=== PATIENT | male | born 1935 | race Caucasian/White ===

== ENCOUNTER 2020-10-12 09:20 | Inpatient (IN) ==
[2020-10-12] MEDS ORDERED: ONDANSETRON 4 MG/2 ML VIAL IV PRN (12:33)
[2020-10-12] MEDS ORDERED: SODIUM CHLORIDE 0.9% 1,000 ML IV PRN ×2 (12:33→14:40)
[2020-10-12] MEDS ORDERED: NITROGLYCERIN SL 0.4 MG TABLET SL PRN (12:38)
[2020-10-12] MEDS: CARBIDOPA/LEVODOPA 25-100 MG TABLET PO SCH ×3 (14:45→21:35)
[2020-10-12 14:49] LABS: Hematocrit 18.9 VOL% (42.0-52.0)
[2020-10-12] MEDS: SODIUM CHLORIDE 0.9% 1,000 ML IV SCH (14:50)
[2020-10-12 14:59] LABS: Alanine Aminotransferase < 9 U/L (16-61); Albumin 2.9 G/DL (3.4-5.0); Alkaline Phosphatase 74 U/L (45-117); Aspartate Amino Transferase 16 U/L (0-37); Bilirubin,Total < 0.39 MG/DL (0.2-1.0); Blood Urea Nitrogen 17 MG/DL (7-18); Calcium 8.3 MG/DL (8.5-10.1); Carbon Dioxide 28 MMOL/L (21-32); Estimated Glom Filtration Rate 65 ML/MIN; Glucose 154 MG/DL (74-106); Osmolality,Calculated 283.4 MOS/KG (273-304); Potassium 2.7 MMOL/L (3.5-5.1); Sodium 140 MMOL/L (136-145)
[2020-10-12 15:06] LABS: Hemoglobin 5.7 GM/DL (14.0-18.0)
[2020-10-12] MEDS: MEMANTINE 10 MG TABLET PO SCH (16:43)
[2020-10-12] MEDS: carvediloL 3.125 MG TABLET PO SCH (16:43)
[2020-10-12] MEDS: DOCUSATE SODIUM 100 MG CAPSULE PO SCH (21:34)
[2020-10-12] MEDS: MELATONIN 3 MG TABLET PO SCH (21:35)
[2020-10-12] MEDS: ROSUVASTATIN 10 MG TABLET PO SCH (21:35)
[2020-10-12] MEDS: RIVASTIGMINE 3 MG CAPSULE PO SCH (21:35)
[2020-10-12] MEDS: PREGABALIN 100 MG CAPSULE PO SCH (21:35)
[2020-10-13 04:59] LABS: Basophils % 0.4 % (0.0-0.8); Eosinophils # 0.2 10*3/uL (0.0-0.87); Eosinophils % 2.2 % (0.00-10.9); Hematocrit 25.3 VOL% (42.0-52.0); Immature Granulocytes Absolute 0.07 #; Lymphocytes # 1.2 10*3/uL (1.4-4.0); Lymphocytes % 16.8 % (21.2-54.2); Mean Corpuscular HGB Conc 33.6 GM/DL (32-36); Mean Corpuscular Volume 82.7 FL (87-102); Mean Platelet Volume 9.9 FL (9.6-12.0); Monocytes % 6.2 % (1.7-12.7); NRBC # 0.03 10*3/uL; Neutrophils % 73.4 % (38.7-73.9); Platelet Count 223 T/CUMM (130-400); Red Blood Count 3.06 MC/CUMM (3.8-5.5); Red Cell Distribution Width 13.9 % (9.3-17.3)
[2020-10-13 05:00] LABS: Hemoglobin 8.5 GM/DL (14.0-18.0)
[2020-10-13] MEDS ORDERED: POTASSIUM CHLORIDE RIDER 10 MEQ in PREMIX 1 EACH IV PRN (07:07)
[2020-10-13] MEDS: SODIUM CHLORIDE 0.9% 1,000 ML IV SCH ×2 (08:29→18:50)
[2020-10-13] MEDS ORDERED: cefTRIAXone 1,000 MG in SODIUM CHLORIDE 0.9% 100 ML IV ONE (10:00)
[2020-10-13] MEDS ORDERED: fentaNYL 100 MCG/2 ML VIAL ONE (10:29)
[2020-10-13] MEDS: carvediloL 3.125 MG TABLET PO SCH ×2 (10:31→16:55)
[2020-10-13] MEDS: DOCUSATE SODIUM 100 MG CAPSULE PO SCH ×2 (10:31→21:37)
[2020-10-13] MEDS: FUROSEMIDE 20 MG TABLET PO SCH (10:31)
[2020-10-13] MEDS: DULoxetine 30 MG CAPSULE PO SCH (10:31)
[2020-10-13] MEDS: RIVASTIGMINE 3 MG CAPSULE PO SCH ×2 (10:31→21:36)
[2020-10-13] MEDS: MEMANTINE 10 MG TABLET PO SCH ×2 (10:31→16:55)
[2020-10-13] MEDS: PREGABALIN 100 MG CAPSULE PO SCH ×2 (10:32→21:36)
[2020-10-13] MEDS: PANTOPRAZOLE 40 MG TABLET PO SCH (10:32)
[2020-10-13] MEDS ORDERED: LIDOCAINE 2% 5 ML VIAL ONE (10:33)
[2020-10-13] MEDS ORDERED: SEVOFLURANE 1 UNIT/15 MINUTE INH ONE (10:33)
[2020-10-13] MEDS ORDERED: propofoL 200 MG/20 ML VIAL IV ONE (10:33)
[2020-10-13] MEDS: Pimavanserin [Nuplazid] 34 mg capsule PO SCH (10:34)
[2020-10-13] MEDS: CARBIDOPA/LEVODOPA 25-100 MG TABLET PO SCH ×4 (10:37→21:37)
[2020-10-13] MEDS ORDERED: SUCCINYLCHOLINE 200 MG/10 ML VIAL ONE ×2 (10:56→11:09)
[2020-10-13] MEDS ORDERED: LACTATED RINGERS 1,000 ML IV SCH (11:00)
[2020-10-13] MEDS ORDERED: cefTRIAXone 1,000 MG VIAL ONE (11:09)
[2020-10-13] MEDS ORDERED: ONDANSETRON 4 MG/2 ML VIAL ONE ×2 (11:09→11:30)
[2020-10-13] MEDS ORDERED: PHENYLEPHRINE 1 MG/10 ML SYRINGE IV ONE ×2 (11:09→11:39)
[2020-10-13] MEDS ORDERED: ePHEDrine 50 MG/ML VIAL ONE (11:16)
[2020-10-13] MEDS ORDERED: EPINEPHrine 1 MG/ML VIAL ONE (11:18)
[2020-10-13] MEDS ORDERED: GLYCOPYRROLATE 0.4 MG/2 ML VIAL ONE (11:30)
[2020-10-13] MEDS ORDERED: ROCURONIUM 50 MG/5 ML VIAL IV ONE (11:30)
[2020-10-13] MEDS ORDERED: SUGAMMADEX 200 MG/2 ML VIAL IV ONE (11:34)
[2020-10-13] MEDS ORDERED: SODIUM CHLORIDE 0.9% 250 ML IV ONE (11:38)
[2020-10-13] MEDS ORDERED: LORazepam 2 MG/1 ML VIAL IV ONE (12:05)
[2020-10-13] MEDS ORDERED: LORazepam 2 MG/1 ML VIAL ONE (12:06)
[2020-10-13] MEDS ORDERED: BELLADONNA/OPIUM 30 MG SUPP RECTAL ONE (12:10)
[2020-10-13] MEDS ORDERED: SODIUM CHLORIDE 0.9% BLADDERIRR SCH (12:30)
[2020-10-13] MEDS ORDERED: AMMONIUM ALUM BLADDERIRR SCH (12:30)
[2020-10-13] MEDS: BELLADONNA/OPIUM 30 MG SUPP RECTAL SCH ×2 (12:57→22:45)
[2020-10-13] MEDS: AMMONIUM ALUM BLADDERIRR SCH (16:00)
[2020-10-13] MEDS: SODIUM CHLORIDE 0.9% BLADDERIRR SCH (16:00)
[2020-10-13] MEDS: cefTRIAXone 1,000 MG in SODIUM CHLORIDE 0.9% 100 ML IV SCH (21:35)
[2020-10-13] MEDS: MELATONIN 3 MG TABLET PO SCH (21:36)
[2020-10-13] MEDS: ROSUVASTATIN 10 MG TABLET PO SCH (21:37)
[2020-10-14] MEDS: AMMONIUM ALUM BLADDERIRR SCH (01:30)
[2020-10-14] MEDS: SODIUM CHLORIDE 0.9% BLADDERIRR SCH (01:30)
[2020-10-14] MEDS: SODIUM CHLORIDE 0.9% 1,000 ML IV SCH (05:45)
[2020-10-14 07:14] LABS: Basophils % 0.4 % (0.0-0.8); Eosinophils # 0.2 10*3/uL (0.0-0.87); Eosinophils % 2.8 % (0.00-10.9); Hematocrit 25.4 VOL% (42.0-52.0); Immature Granulocytes % 0.5 %; Immature Granulocytes Absolute 0.04 #; Lymphocytes # 1.2 10*3/uL (1.4-4.0); Lymphocytes % 15.1 % (21.2-54.2); Mean Corpuscular HGB Conc 31.5 GM/DL (32-36); Mean Corpuscular Volume 86.1 FL (87-102); Mean Platelet Volume 9.6 FL (9.6-12.0); Neutrophils % 75.2 % (38.7-73.9); Platelet Count 232 T/CUMM (130-400); Red Blood Count 2.95 MC/CUMM (3.8-5.5); Red Cell Distribution Width 14.4 % (9.3-17.3); White Blood Count 7.8 T/CUMM (4-12)
[2020-10-14] MEDS ORDERED: SODIUM CHLORIDE 0.9% 1,000 ML IV PRN ×2 (08:42→08:43)
[2020-10-14] MEDS: MEPERIDINE 50 MG/1 ML VIAL IM PRN ×2 (10:48→13:57)
[2020-10-14] MEDS: PROMETHAZINE 25 MG/1 ML VIAL IM PRN ×2 (10:49→13:56)
[2020-10-14] MEDS: RIVASTIGMINE 3 MG CAPSULE PO SCH ×2 (11:02→21:53)
[2020-10-14] MEDS: carvediloL 3.125 MG TABLET PO SCH ×2 (11:03→18:33)
[2020-10-14] MEDS: MEMANTINE 10 MG TABLET PO SCH ×2 (11:03→18:33)
[2020-10-14] MEDS: DULoxetine 30 MG CAPSULE PO SCH (11:03)
[2020-10-14] MEDS: DOCUSATE SODIUM 100 MG CAPSULE PO SCH ×2 (11:03→21:08)
[2020-10-14] MEDS: PANTOPRAZOLE 40 MG TABLET PO SCH (11:04)
[2020-10-14] MEDS: FUROSEMIDE 20 MG TABLET PO SCH (11:04)
[2020-10-14] MEDS: BELLADONNA/OPIUM 30 MG SUPP RECTAL SCH (11:05)
[2020-10-14] MEDS: CARBIDOPA/LEVODOPA 25-100 MG TABLET PO SCH ×4 (11:09→21:08)
[2020-10-14] MEDS: PREGABALIN 100 MG CAPSULE PO SCH ×2 (11:10→21:08)
[2020-10-14] MEDS ORDERED: AMMONIUM ALUM BLADDERIRR SCH (11:30)
[2020-10-14] MEDS ORDERED: SODIUM CHLORIDE 0.9% BLADDERIRR SCH (11:30)
[2020-10-14] MEDS: Pimavanserin [Nuplazid] 34 mg capsule PO SCH (11:38)
[2020-10-14] MEDS: OXYBUTYNIN 5 MG TABLET PO SCH ×2 (14:15→21:08)
[2020-10-14] MEDS ORDERED: POTASSIUM CHLORIDE 20 MEQ TABLET PO PRN (14:46)
[2020-10-14] MEDS: ROSUVASTATIN 10 MG TABLET PO SCH (21:08)
[2020-10-14] MEDS: MELATONIN 3 MG TABLET PO SCH (21:08)
[2020-10-14] MEDS: cefTRIAXone 1,000 MG in SODIUM CHLORIDE 0.9% 100 ML IV SCH (21:09)
[2020-10-14] MEDS: OLOPATADINE 0.1% OPH SOLN 5 ML BOTTLE LEFT EYE SCH (21:53)
[2020-10-15] MEDS: SODIUM CHLORIDE 0.9% 1,000 ML IV SCH ×2 (03:43→17:03)
[2020-10-15] MEDS ORDERED: AMMONIUM ALUM BLADDERIRR SCH (08:00)
[2020-10-15] MEDS ORDERED: SODIUM CHLORIDE 0.9% BLADDERIRR SCH (08:00)
[2020-10-15] MEDS: PREGABALIN 100 MG CAPSULE PO SCH ×2 (09:14→20:29)
[2020-10-15] MEDS: CARBIDOPA/LEVODOPA 25-100 MG TABLET PO SCH ×4 (09:14→20:29)
[2020-10-15] MEDS: MEMANTINE 10 MG TABLET PO SCH ×2 (09:14→17:02)
[2020-10-15] MEDS: FUROSEMIDE 20 MG TABLET PO SCH (09:15)
[2020-10-15] MEDS: DOCUSATE SODIUM 100 MG CAPSULE PO SCH ×2 (09:15→20:28)
[2020-10-15] MEDS: carvediloL 3.125 MG TABLET PO SCH ×2 (09:15→17:02)
[2020-10-15] MEDS: RIVASTIGMINE 3 MG CAPSULE PO SCH ×2 (09:15→20:30)
[2020-10-15] MEDS: PANTOPRAZOLE 40 MG TABLET PO SCH (09:15)
[2020-10-15] MEDS: OXYBUTYNIN 5 MG TABLET PO SCH ×3 (09:15→20:29)
[2020-10-15] MEDS: OLOPATADINE 0.1% OPH SOLN 5 ML BOTTLE LEFT EYE SCH ×2 (09:20→20:20)
[2020-10-15] MEDS: Pimavanserin [Nuplazid] 34 mg capsule PO SCH (09:20)
[2020-10-15] MEDS: DULoxetine 30 MG CAPSULE PO SCH (09:22)
[2020-10-15] MEDS: LORazepam 2 MG/1 ML VIAL IV PRN ×2 (10:32→18:22)
[2020-10-15 10:55] LABS: Basophils % 0.3 % (0.0-0.8); Eosinophils # 0.3 10*3/uL (0.0-0.87); Eosinophils % 2.9 % (0.00-10.9); Hematocrit 30.7 VOL% (42.0-52.0); Hemoglobin 9.6 GM/DL (14.0-18.0); Immature Granulocytes % 0.7 %; Immature Granulocytes Absolute 0.06 #; Lymphocytes # 1.1 10*3/uL (1.4-4.0); Lymphocytes % 12.4 % (21.2-54.2); Mean Corpuscular HGB Conc 31.3 GM/DL (32-36); Mean Corpuscular Volume 88.7 FL (87-102); Mean Platelet Volume 9.5 FL (9.6-12.0); Monocytes % 6.7 % (1.7-12.7); NRBC # 0.02 10*3/uL; Platelet Count 219 T/CUMM (130-400); Red Blood Count 3.46 MC/CUMM (3.8-5.5); Red Cell Distribution Width 14.6 % (9.3-17.3); White Blood Count 8.7 T/CUMM (4-12)
[2020-10-15] MEDS: SODIUM CHLORIDE 0.9% BLADDERIRR SCH ×9 (12:16→22:25)
[2020-10-15] MEDS: AMMONIUM ALUM BLADDERIRR SCH ×9 (12:16→22:25)
[2020-10-15] MEDS: MELATONIN 3 MG TABLET PO SCH (20:28)
[2020-10-15] MEDS: SULFAMETHOX/TRIMETHOPRIM 800-160 MG TABLET PO SCH (20:29)
[2020-10-15] MEDS: ROSUVASTATIN 10 MG TABLET PO SCH (20:29)
[2020-10-15] MEDS ORDERED: ZIPRASIDONE 20 MG/1 ML VIAL IM ONE (21:29)
[2020-10-15] MEDS: BELLADONNA/OPIUM 30 MG SUPP RECTAL SCH (23:30)
[2020-10-16] MEDS: SODIUM CHLORIDE 0.9% BLADDERIRR SCH ×15 (01:05→23:03)
[2020-10-16] MEDS: AMMONIUM ALUM BLADDERIRR SCH ×15 (01:05→23:03)
[2020-10-16] MEDS: LORazepam 2 MG/1 ML VIAL IV PRN ×3 (02:35→22:00)
[2020-10-16] MEDS: SODIUM CHLORIDE 0.9% 1,000 ML IV SCH ×2 (02:35→18:14)
[2020-10-16] MEDS: RIVASTIGMINE 3 MG CAPSULE PO SCH ×2 (08:59→20:45)
[2020-10-16] MEDS: DULoxetine 30 MG CAPSULE PO SCH (08:59)
[2020-10-16] MEDS: SULFAMETHOX/TRIMETHOPRIM 800-160 MG TABLET PO SCH (08:59)
[2020-10-16] MEDS: CARBIDOPA/LEVODOPA 25-100 MG TABLET PO SCH ×4 (09:00→20:45)
[2020-10-16] MEDS: ACETAMINOPHEN 325 MG TABLET PO PRN (09:00)
[2020-10-16] MEDS: carvediloL 3.125 MG TABLET PO SCH ×2 (09:00→16:17)
[2020-10-16] MEDS: PREGABALIN 100 MG CAPSULE PO SCH ×2 (09:00→20:44)
[2020-10-16] MEDS: MEMANTINE 10 MG TABLET PO SCH ×2 (09:01→16:17)
[2020-10-16] MEDS: FUROSEMIDE 20 MG TABLET PO SCH (09:01)
[2020-10-16] MEDS: DOCUSATE SODIUM 100 MG CAPSULE PO SCH ×2 (09:01→20:44)
[2020-10-16] MEDS: PANTOPRAZOLE 40 MG TABLET PO SCH (09:01)
[2020-10-16] MEDS: OLOPATADINE 0.1% OPH SOLN 5 ML BOTTLE LEFT EYE SCH ×2 (09:09→21:35)
[2020-10-16] MEDS: Pimavanserin [Nuplazid] 34 mg capsule PO SCH (09:10)
[2020-10-16] MEDS: OXYBUTYNIN 5 MG TABLET PO SCH ×3 (09:10→20:45)
[2020-10-16] MEDS: BELLADONNA/OPIUM 30 MG SUPP RECTAL SCH ×2 (10:22→20:44)
[2020-10-16] MEDS: VANCOMYCIN INJ 1,250 MG in SODIUM CHLORIDE 0.9% 250 ML IV SCH (15:36)
[2020-10-16] MEDS: MELATONIN 3 MG TABLET PO SCH (20:44)
[2020-10-16] MEDS: ROSUVASTATIN 10 MG TABLET PO SCH (20:44)
[2020-10-17] MEDS: AMMONIUM ALUM BLADDERIRR SCH ×13 (01:35→23:45)
[2020-10-17] MEDS: SODIUM CHLORIDE 0.9% BLADDERIRR SCH ×13 (01:35→23:45)
[2020-10-17 05:44] LABS: Basophils % 0.5 % (0.0-0.8); Eosinophils # 0.2 10*3/uL (0.0-0.87); Eosinophils % 3.1 % (0.00-10.9); Hematocrit 32.5 VOL% (42.0-52.0); Hemoglobin 10.4 GM/DL (14.0-18.0); Immature Granulocytes % 0.4 %; Immature Granulocytes Absolute 0.03 #; Lymphocytes # 1.2 10*3/uL (1.4-4.0); Lymphocytes % 15.7 % (21.2-54.2); Mean Corpuscular Volume 86.9 FL (87-102); Mean Platelet Volume 9.4 FL (9.6-12.0); Monocytes % 5.2 % (1.7-12.7); Neutrophils % 75.1 % (38.7-73.9); Platelet Count 203 T/CUMM (130-400); Red Blood Count 3.74 MC/CUMM (3.8-5.5); Red Cell Distribution Width 15.1 % (9.3-17.3); White Blood Count 7.5 T/CUMM (4-12)
[2020-10-17 06:11] LABS: Alanine Aminotransferase < 6 U/L (16-61); Albumin 2.5 G/DL (3.4-5.0); Alkaline Phosphatase 73 U/L (45-117); Aspartate Amino Transferase 15 U/L (0-37); Blood Urea Nitrogen 10 MG/DL (7-18); Calcium 8.4 MG/DL (8.5-10.1); Carbon Dioxide 28 MMOL/L (21-32); Estimated Glom Filtration Rate 99 ML/MIN; Glucose 95 MG/DL (74-106); Osmolality,Calculated 271.8 MOS/KG (273-304); Potassium 3.4 MMOL/L (3.5-5.1); Sodium 137 MMOL/L (136-145); Total Protein 5.7 G/DL (6.4-8.2)
[2020-10-17] MEDS: PROMETHAZINE 25 MG/1 ML VIAL IM PRN (07:16)
[2020-10-17] MEDS: LORazepam 2 MG/1 ML VIAL IV PRN ×2 (08:06→23:00)
[2020-10-17] MEDS: BELLADONNA/OPIUM 30 MG SUPP RECTAL SCH ×2 (08:06→20:09)
[2020-10-17] MEDS ORDERED: FUROSEMIDE 20 MG/2 ML VIAL IV ONE (08:13)
[2020-10-17] MEDS: carvediloL 3.125 MG TABLET PO SCH ×2 (08:36→17:58)
[2020-10-17] MEDS: MEMANTINE 10 MG TABLET PO SCH ×2 (08:37→17:58)
[2020-10-17] MEDS: DOCUSATE SODIUM 100 MG CAPSULE PO SCH ×2 (08:37→20:09)
[2020-10-17] MEDS: DULoxetine 30 MG CAPSULE PO SCH (08:38)
[2020-10-17] MEDS: OXYBUTYNIN 5 MG TABLET PO SCH ×3 (08:38→20:09)
[2020-10-17] MEDS: RIVASTIGMINE 3 MG CAPSULE PO SCH ×2 (08:38→20:09)
[2020-10-17] MEDS: FUROSEMIDE 20 MG TABLET PO SCH (08:39)
[2020-10-17] MEDS: Pimavanserin [Nuplazid] 34 mg capsule PO SCH (08:40)
[2020-10-17] MEDS: PREGABALIN 100 MG CAPSULE PO SCH ×2 (08:40→20:09)
[2020-10-17] MEDS: CARBIDOPA/LEVODOPA 25-100 MG TABLET PO SCH ×4 (08:41→20:09)
[2020-10-17] MEDS: PANTOPRAZOLE 40 MG TABLET PO SCH (08:41)
[2020-10-17 09:13] LABS: ABG Base Excess -1.3 MMOL/L (-2.5-2.5); ABG HCO3 23.1 MMOL/L (20-26); ABG PH 7.338 (7.35-7.45); ABG PO2 59.8 MM HG (80-95); ABG TCO2 22.4 MMOL/L (23-27); Allen Test Positive
[2020-10-17] MEDS: SODIUM CHLORIDE 0.9% 1,000 ML IV SCH (10:02)
[2020-10-17] MEDS: OLOPATADINE 0.1% OPH SOLN 5 ML BOTTLE LEFT EYE SCH ×2 (10:02→20:10)
[2020-10-17] MEDS ORDERED: MORPHINE 4 MG/1 ML VIAL IV PRN (10:47)
[2020-10-17] MEDS: ACETAMINOPHEN 325 MG TABLET PO PRN (14:07)
[2020-10-17] MEDS: VANCOMYCIN INJ 1,250 MG in SODIUM CHLORIDE 0.9% 250 ML IV SCH (15:39)
[2020-10-17] MEDS: FUROSEMIDE 40 MG/4 ML VIAL IV SCH (15:44)
[2020-10-17] MEDS: MELATONIN 3 MG TABLET PO SCH (20:09)
[2020-10-17] MEDS: ROSUVASTATIN 10 MG TABLET PO SCH (20:09)
[2020-10-17] MEDS: PIPERACILLIN/TAZOBACTAM 3,375 MG in SODIUM CHLORIDE 0.9% 100 ML IV SCH (20:10)
[2020-10-18] MEDS ORDERED: ZIPRASIDONE 20 MG/1 ML VIAL IM STA (00:31)
[2020-10-18] MEDS: SODIUM CHLORIDE 0.9% BLADDERIRR SCH ×6 (00:45→06:20)
[2020-10-18] MEDS: AMMONIUM ALUM BLADDERIRR SCH ×6 (00:45→06:20)
[2020-10-18] MEDS: PIPERACILLIN/TAZOBACTAM 3,375 MG in SODIUM CHLORIDE 0.9% 100 ML IV SCH ×3 (04:10→21:28)
[2020-10-18] MEDS: BELLADONNA/OPIUM 30 MG SUPP RECTAL SCH ×2 (08:01→21:27)
[2020-10-18] MEDS: FUROSEMIDE 40 MG/4 ML VIAL IV SCH (09:01)
[2020-10-18] MEDS: carvediloL 3.125 MG TABLET PO SCH ×2 (09:11→17:21)
[2020-10-18] MEDS: MEMANTINE 10 MG TABLET PO SCH ×2 (09:11→17:22)
[2020-10-18] MEDS: DOCUSATE SODIUM 100 MG CAPSULE PO SCH ×2 (09:11→21:27)
[2020-10-18] MEDS: OXYBUTYNIN 5 MG TABLET PO SCH ×3 (09:12→21:27)
[2020-10-18] MEDS: PREGABALIN 100 MG CAPSULE PO SCH ×2 (09:12→21:27)
[2020-10-18] MEDS: RIVASTIGMINE 3 MG CAPSULE PO SCH ×2 (09:12→21:27)
[2020-10-18] MEDS: FUROSEMIDE 20 MG TABLET PO SCH (09:12)
[2020-10-18] MEDS: DULoxetine 30 MG CAPSULE PO SCH (09:12)
[2020-10-18] MEDS: CARBIDOPA/LEVODOPA 25-100 MG TABLET PO SCH ×4 (09:13→21:27)
[2020-10-18] MEDS: PANTOPRAZOLE 40 MG TABLET PO SCH (09:13)
[2020-10-18] MEDS: Pimavanserin [Nuplazid] 34 mg capsule PO SCH (11:42)
[2020-10-18] MEDS: OLOPATADINE 0.1% OPH SOLN 5 ML BOTTLE LEFT EYE SCH ×2 (11:42→21:28)
[2020-10-18] MEDS: VANCOMYCIN INJ 1,250 MG in SODIUM CHLORIDE 0.9% 250 ML IV SCH (17:53)
[2020-10-18] MEDS: ROSUVASTATIN 10 MG TABLET PO SCH (21:27)
[2020-10-18] MEDS: MELATONIN 3 MG TABLET PO SCH (21:55)
[2020-10-19] MEDS: PIPERACILLIN/TAZOBACTAM 3,375 MG in SODIUM CHLORIDE 0.9% 100 ML IV SCH ×3 (04:37→21:37)
[2020-10-19] MEDS: carvediloL 3.125 MG TABLET PO SCH ×2 (09:39→17:09)
[2020-10-19] MEDS: MEMANTINE 10 MG TABLET PO SCH ×2 (09:40→17:09)
[2020-10-19] MEDS: DULoxetine 30 MG CAPSULE PO SCH (09:40)
[2020-10-19] MEDS: DOCUSATE SODIUM 100 MG CAPSULE PO SCH ×2 (09:40→21:36)
[2020-10-19] MEDS: BELLADONNA/OPIUM 30 MG SUPP RECTAL SCH ×2 (09:40→21:36)
[2020-10-19] MEDS: RIVASTIGMINE 3 MG CAPSULE PO SCH ×2 (09:41→21:36)
[2020-10-19] MEDS: PREGABALIN 100 MG CAPSULE PO SCH ×2 (09:41→21:36)
[2020-10-19] MEDS: FUROSEMIDE 20 MG TABLET PO SCH (09:41)
[2020-10-19] MEDS: OXYBUTYNIN 5 MG TABLET PO SCH ×3 (09:41→21:36)
[2020-10-19] MEDS: PANTOPRAZOLE 40 MG TABLET PO SCH (09:41)
[2020-10-19] MEDS: CARBIDOPA/LEVODOPA 25-100 MG TABLET PO SCH ×4 (09:42→21:36)
[2020-10-19] MEDS: Pimavanserin [Nuplazid] 34 mg capsule PO SCH (09:50)
[2020-10-19] MEDS: OLOPATADINE 0.1% OPH SOLN 5 ML BOTTLE LEFT EYE SCH ×2 (09:50→21:36)
[2020-10-19] MEDS: POLYETHYLENE GLYCOL POWDER 17 GM PACK PO SCH (10:49)
[2020-10-19] MEDS: ALBUTEROL 2.5 MG/3 ML NEB RESP TX SCH ×2 (12:31→20:07)
[2020-10-19] MEDS ORDERED: FUROSEMIDE 40 MG/4 ML VIAL IV ONE ×2 (12:58→13:15)
[2020-10-19] MEDS: VANCOMYCIN INJ 1,250 MG in SODIUM CHLORIDE 0.9% 250 ML IV SCH ×2 (14:00→17:38)
[2020-10-19] MEDS: MELATONIN 3 MG TABLET PO SCH (21:35)
[2020-10-19] MEDS: ROSUVASTATIN 10 MG TABLET PO SCH (21:36)
[2020-10-20] MEDS: ALBUTEROL 2.5 MG/3 ML NEB RESP TX SCH ×2 (02:16→08:27)
[2020-10-20] MEDS: VANCOMYCIN INJ 1,250 MG in SODIUM CHLORIDE 0.9% 250 ML IV SCH (04:56)
[2020-10-20] MEDS: PIPERACILLIN/TAZOBACTAM 3,375 MG in SODIUM CHLORIDE 0.9% 100 ML IV SCH (06:40)
[2020-10-20 08:05] VITALS: BP 171/88
[2020-10-20 09:09] LABS: Basophils % 0.5 % (0.0-0.8); Eosinophils # 0.2 10*3/uL (0.0-0.87); Eosinophils % 3.7 % (0.00-10.9); Hematocrit 32.5 VOL% (42.0-52.0); Hemoglobin 10.4 GM/DL (14.0-18.0); Immature Granulocytes % 0.5 %; Immature Granulocytes Absolute 0.03 #; Lymphocytes # 0.7 10*3/uL (1.4-4.0); Lymphocytes % 10.6 % (21.2-54.2); Mean Corpuscular Volume 85.3 FL (87-102); Mean Platelet Volume 9.4 FL (9.6-12.0); Monocytes % 4.3 % (1.7-12.7); Neutrophils % 80.4 % (38.7-73.9); Platelet Count 185 T/CUMM (130-400); Red Blood Count 3.81 MC/CUMM (3.8-5.5); Red Cell Distribution Width 14.6 % (9.3-17.3); White Blood Count 6.5 T/CUMM (4-12)
[2020-10-20 09:26] LABS: Calcium 8.5 MG/DL (8.5-10.1); Osmolality,Calculated 271.2 MOS/KG (273-304); Potassium 2.9 MMOL/L (3.5-5.1)
[2020-10-20] MEDS: Pimavanserin [Nuplazid] 34 mg capsule PO SCH (09:40)
[2020-10-20] MEDS: BELLADONNA/OPIUM 30 MG SUPP RECTAL SCH (09:40)
[2020-10-20] MEDS: OXYBUTYNIN 5 MG TABLET PO SCH (09:41)
[2020-10-20] MEDS: DULoxetine 30 MG CAPSULE PO SCH (09:41)
[2020-10-20] MEDS: PREGABALIN 100 MG CAPSULE PO SCH (09:41)
[2020-10-20] MEDS: POLYETHYLENE GLYCOL POWDER 17 GM PACK PO SCH (09:41)
[2020-10-20] MEDS: OLOPATADINE 0.1% OPH SOLN 5 ML BOTTLE LEFT EYE SCH (09:41)
[2020-10-20] MEDS: RIVASTIGMINE 3 MG CAPSULE PO SCH (09:41)
[2020-10-20] MEDS: DOCUSATE SODIUM 100 MG CAPSULE PO SCH (09:42)
[2020-10-20] MEDS: FUROSEMIDE 20 MG TABLET PO SCH (09:42)
[2020-10-20] MEDS: MEMANTINE 10 MG TABLET PO SCH (09:42)
[2020-10-20] MEDS: PANTOPRAZOLE 40 MG TABLET PO SCH (09:42)
[2020-10-20] MEDS: CARBIDOPA/LEVODOPA 25-100 MG TABLET PO SCH (09:42)
[2020-10-20] MEDS: carvediloL 3.125 MG TABLET PO SCH (09:42)
== END 2020-10-20 10:40 | disposition home health service (06) | DRG 698 ==
LOC: N.TELES 12:49 → N.3E 10-14 20:41
PROVIDERS: ADMIT Family Medicine; ATTEND Family Medicine

== ENCOUNTER 2021-04-21 12:31 | Inpatient (IN) ==
[2021-04-21] MEDS ORDERED: ACETAMINOPHEN 325 MG TABLET PO PRN (12:46)
[2021-04-21] MEDS ORDERED: ONDANSETRON 4 MG/2 ML VIAL IV PRN (12:46)
[2021-04-21] MEDS: SODIUM CHLORIDE 0.45% 1,000 ML IV SCH (13:49)
[2021-04-21 13:56] LABS: Basophils % 0.2 % (0.0-0.8); Eosinophils # 0.1 10*3/uL (0.0-0.87); Eosinophils % 1.6 % (0.00-10.9); Hematocrit 35.8 VOL% (42.0-52.0); Immature Granulocytes % 0.7 %; Immature Granulocytes Absolute 0.06 #; Lymphocytes # 1.7 10*3/uL (1.4-4.0); Lymphocytes % 19.9 % (21.2-54.2); Mean Corpuscular HGB Conc 33.5 GM/DL (32-36); Mean Corpuscular Volume 86.9 FL (87-102); Mean Platelet Volume 8.8 FL (9.6-12.0); Monocytes % 5.6 % (1.7-12.7); Platelet Count 226 T/CUMM (130-400); Red Blood Count 4.12 MC/CUMM (3.8-5.5); White Blood Count 8.6 T/CUMM (4-12)
[2021-04-21] MEDS ORDERED: INFLUENZA VIRUS VACCINE 0.5 ML SYRINGE IM ONE (14:05)
[2021-04-21 14:22] LABS: Alanine Aminotransferase < 6 U/L (16-61); Albumin 3.3 G/DL (3.4-5.0); Alkaline Phosphatase 89 U/L (45-117); Aspartate Amino Transferase 12 U/L (0-37); Blood Urea Nitrogen 12 MG/DL (7-18); Calcium 9.3 MG/DL (8.5-10.1); Carbon Dioxide 28 MMOL/L (21-32); Estimated Glom Filtration Rate 81 ML/MIN; Glucose 147 MG/DL (74-106); Osmolality,Calculated 264.7 MOS/KG (273-304); Sodium 131 MMOL/L (136-145); Total Protein 8.5 G/DL (6.4-8.2)
[2021-04-21] MEDS ORDERED: hydrALAZINE 20 MG/1 ML VIAL IV ONE (16:26)
[2021-04-21] MEDS: MEMANTINE 10 MG TABLET PO SCH (17:10)
[2021-04-21] MEDS: CARBIDOPA/LEVODOPA 25-100 MG TABLET PO SCH ×2 (17:10→21:04)
[2021-04-21] MEDS: POTASSIUM CHLORIDE 20 MEQ TABLET PO PRN (17:10)
[2021-04-21] MEDS: carvediloL 3.125 MG TABLET PO SCH (17:10)
[2021-04-21] MEDS: PIPERACILLIN/TAZOBACTAM 3,375 MG in SODIUM CHLORIDE 0.9% 100 ML IV SCH (17:12)
[2021-04-21 18:04] LABS: Bacteria,Urine Moderate /HPF (Few); Bilirubin,Urine Negative (Negative); Blood, Urine Negative (Negative); Glucose,Urine (UA) Negative (Negative); Ketones,Urine Negative (Negative); Mucus,Urine Occasional /LPF (Occasional); Nitrite,Urine Negative (Negative); Protein,Urine Negative; RBC,Urine 3 /HPF (0-4); Squamous Epithelial Cell,Urine Occasional /HPF (0-10); Urine Appearance Slightly Hazy (Clear); Urine Color Yellow (Yellow); Urine Specific Gravity 1.004 (1.001-1.035)
[2021-04-21] MEDS ORDERED: RIVASTIGMINE TARTRATE 6 MG PO SCH (21:00)
[2021-04-21] MEDS: VANCOMYCIN INJ 1,250 MG in SODIUM CHLORIDE 0.9% 250 ML IV SCH (21:01)
[2021-04-21] MEDS: PREGABALIN 100 MG CAPSULE PO SCH (21:04)
[2021-04-21] MEDS: DOCUSATE SODIUM 100 MG CAPSULE PO SCH (21:04)
[2021-04-21] MEDS: MELATONIN 3 MG TABLET PO SCH (21:04)
[2021-04-21] MEDS: FERROUS SULFATE 325 MG TABLET PO SCH (21:04)
[2021-04-21] MEDS: ROSUVASTATIN 10 MG TABLET PO SCH (21:04)
[2021-04-21] MEDS: ENOXAPARIN 30 MG/0.3 ML SYRINGE SUBCUT SCH (21:05)
[2021-04-22] MEDS: POTASSIUM CHLORIDE 20 MEQ TABLET PO PRN ×3 (00:19→04:31)
[2021-04-22] MEDS: PIPERACILLIN/TAZOBACTAM 3,375 MG in SODIUM CHLORIDE 0.9% 100 ML IV SCH ×3 (00:19→17:39)
[2021-04-22] MEDS: PANTOPRAZOLE 40 MG TABLET PO SCH (06:07)
[2021-04-22] MEDS: SODIUM CHLORIDE 0.45% 1,000 ML IV SCH (09:07)
[2021-04-22] MEDS: VANCOMYCIN INJ 1,250 MG in SODIUM CHLORIDE 0.9% 250 ML IV SCH ×2 (09:09→21:40)
[2021-04-22] MEDS: carvediloL 3.125 MG TABLET PO SCH ×2 (09:10→17:38)
[2021-04-22] MEDS: MEMANTINE 10 MG TABLET PO SCH ×2 (09:11→17:38)
[2021-04-22] MEDS: PREGABALIN 100 MG CAPSULE PO SCH ×2 (09:11→21:44)
[2021-04-22] MEDS: DOCUSATE SODIUM 100 MG CAPSULE PO SCH ×2 (09:11→21:44)
[2021-04-22] MEDS: FERROUS SULFATE 325 MG TABLET PO SCH ×2 (09:11→21:45)
[2021-04-22] MEDS: RIVASTIGMINE 3 MG CAPSULE PO SCH ×2 (09:11→21:44)
[2021-04-22] MEDS: CARBIDOPA/LEVODOPA 25-100 MG TABLET PO SCH ×4 (09:12→21:45)
[2021-04-22] MEDS: FUROSEMIDE 20 MG TABLET PO SCH (11:32)
[2021-04-22] MEDS: MEGESTROL 400 MG/10 ML UDCUP PO SCH (11:33)
[2021-04-22] MEDS: PIMAVANSERIN 34 MG PO SCH (11:33)
[2021-04-22] MEDS ORDERED: ceFAZolin 2,000 MG in SODIUM CHLORIDE 0.9% 100 ML IV ONE (12:33)
[2021-04-22 15:06] LABS: Bilirubin,Urine Negative (Negative); Blood, Urine Small mg/dL (Negative); Glucose,Urine (UA) Negative (Negative); Ketones,Urine Negative (Negative); Mucus,Urine Occasional /LPF (Occasional); Nitrite,Urine Negative (Negative); Protein,Urine Negative; RBC,Urine 5 /HPF (0-4); Squamous Epithelial Cell,Urine Occasional /HPF (0-10); Urine Appearance CLEAR (Clear); Urine Color Yellow (Yellow)
[2021-04-22] MEDS ORDERED: MEPERIDINE 25 MG/1 ML VIAL ONE (15:20)
[2021-04-22] MEDS ORDERED: ONDANSETRON 4 MG/2 ML VIAL IV PRN (15:27)
[2021-04-22] MEDS ORDERED: MEPERIDINE 25 MG/1 ML VIAL IV PRN (15:27)
[2021-04-22] MEDS ORDERED: propofoL 200 MG/20 ML VIAL IV ONE (18:14)
[2021-04-22] MEDS ORDERED: LIDOCAINE 2% 5 ML VIAL ONE (18:14)
[2021-04-22] MEDS ORDERED: DESFLURANE 1 UNIT/15 MINUTE INH ONE (18:14)
[2021-04-22] MEDS ORDERED: ACETAMINOPHEN INJ 1,000 MG/100 ML VIAL IV ONE (18:14)
[2021-04-22] MEDS ORDERED: fentaNYL 100 MCG/2 ML VIAL ONE (18:14)
[2021-04-22] MEDS ORDERED: PHENYLEPHRINE 1 MG/10 ML SYRINGE IV ONE (18:14)
[2021-04-22] MEDS ORDERED: ETOMIDATE 40 MG/20 ML VIAL IV ONE (18:14)
[2021-04-22] MEDS ORDERED: PHENYLEPHRINE 10 MG/1 ML VIAL IV ONE (18:15)
[2021-04-22] MEDS ORDERED: NEOSTIGMINE 10 MG/10 ML VIAL ONE (18:15)
[2021-04-22] MEDS ORDERED: ePHEDrine 50 MG/ML VIAL ONE (18:15)
[2021-04-22] MEDS: ENOXAPARIN 30 MG/0.3 ML SYRINGE SUBCUT SCH (21:43)
[2021-04-22] MEDS: MELATONIN 3 MG TABLET PO SCH (21:43)
[2021-04-22] MEDS: traMADol 50 MG TABLET PO PRN (21:43)
[2021-04-22] MEDS: ROSUVASTATIN 10 MG TABLET PO SCH (21:44)
[2021-04-23] MEDS: PIPERACILLIN/TAZOBACTAM 3,375 MG in SODIUM CHLORIDE 0.9% 100 ML IV SCH ×3 (01:01→18:17)
[2021-04-23] MEDS: SODIUM CHLORIDE 0.45% 1,000 ML IV SCH ×2 (01:02→18:16)
[2021-04-23] MEDS: PANTOPRAZOLE 40 MG TABLET PO SCH (06:26)
[2021-04-23] MEDS: CARBIDOPA/LEVODOPA 25-100 MG TABLET PO SCH ×4 (08:46→22:04)
[2021-04-23] MEDS: DOCUSATE SODIUM 100 MG CAPSULE PO SCH ×2 (08:46→22:04)
[2021-04-23] MEDS: FUROSEMIDE 20 MG TABLET PO SCH (08:47)
[2021-04-23] MEDS: FERROUS SULFATE 325 MG TABLET PO SCH ×2 (08:47→22:04)
[2021-04-23] MEDS: RIVASTIGMINE 3 MG CAPSULE PO SCH ×2 (08:47→22:05)
[2021-04-23] MEDS: MEMANTINE 10 MG TABLET PO SCH ×2 (08:47→17:07)
[2021-04-23] MEDS: carvediloL 3.125 MG TABLET PO SCH ×2 (08:47→17:07)
[2021-04-23] MEDS: PREGABALIN 100 MG CAPSULE PO SCH ×2 (08:47→22:04)
[2021-04-23] MEDS: PIMAVANSERIN 34 MG PO SCH (08:48)
[2021-04-23] MEDS: MEGESTROL 400 MG/10 ML UDCUP PO SCH (08:49)
[2021-04-23] MEDS: VANCOMYCIN INJ 1,250 MG in SODIUM CHLORIDE 0.9% 250 ML IV SCH ×2 (08:59→22:05)
[2021-04-23 12:40] LABS: Basophils % 0.2 % (0.0-0.8); Eosinophils # 0.1 10*3/uL (0.0-0.87); Eosinophils % 1.5 % (0.00-10.9); Hematocrit 30.7 VOL% (42.0-52.0); Hemoglobin 10.1 GM/DL (14.0-18.0); Immature Granulocytes % 0.8 %; Immature Granulocytes Absolute 0.05 #; Lymphocytes # 1.1 10*3/uL (1.4-4.0); Lymphocytes % 16.7 % (21.2-54.2); Mean Corpuscular HGB Conc 32.9 GM/DL (32-36); Mean Corpuscular Volume 88.7 FL (87-102); Mean Platelet Volume 8.9 FL (9.6-12.0); Monocytes % 4.4 % (1.7-12.7); Neutrophils % 76.4 % (38.7-73.9); Platelet Count 170 T/CUMM (130-400); Red Blood Count 3.46 MC/CUMM (3.8-5.5); Red Cell Distribution Width 13.2 % (9.3-17.3); White Blood Count 6.5 T/CUMM (4-12)
[2021-04-23 13:03] LABS: Alanine Aminotransferase < 6 U/L (16-61); Albumin 2.5 G/DL (3.4-5.0); Alkaline Phosphatase 67 U/L (45-117); Aspartate Amino Transferase 9 U/L (0-37); Blood Urea Nitrogen 9 MG/DL (7-18); Carbon Dioxide 24 MMOL/L (21-32); Estimated Glom Filtration Rate 81 ML/MIN; Glucose 152 MG/DL (74-106); Osmolality,Calculated 267.4 MOS/KG (273-304); Potassium 3.6 MMOL/L (3.5-5.1); Sodium 133 MMOL/L (136-145); Total Protein 6.7 G/DL (6.4-8.2)
[2021-04-23 13:06] LABS: Calcium 8.3 MG/DL (8.5-10.1)
[2021-04-23] MEDS ORDERED: MAGNESIUM SULF RIDER 4 GM/100 ML PREMIX IV PRN (16:20)
[2021-04-23] MEDS ORDERED: MAGNESIUM SULF RIDER 2 GM/50 ML PREMIX IV PRN (16:20)
[2021-04-23] MEDS: ENOXAPARIN 30 MG/0.3 ML SYRINGE SUBCUT SCH (22:03)
[2021-04-23] MEDS: ROSUVASTATIN 10 MG TABLET PO SCH (22:03)
[2021-04-23] MEDS: MELATONIN 3 MG TABLET PO SCH (22:04)
[2021-04-23] MEDS: traMADol 50 MG TABLET PO PRN (22:04)
[2021-04-24] MEDS: PIPERACILLIN/TAZOBACTAM 3,375 MG in SODIUM CHLORIDE 0.9% 100 ML IV SCH ×3 (00:58→16:49)
[2021-04-24 05:26] LABS: Basophils % 0.2 % (0.0-0.8); Eosinophils # 0.1 10*3/uL (0.0-0.87); Eosinophils % 2.5 % (0.00-10.9); Hematocrit 27.8 VOL% (42.0-52.0); Hemoglobin 9.2 GM/DL (14.0-18.0); Immature Granulocytes % 0.8 %; Immature Granulocytes Absolute 0.04 #; Lymphocytes # 1.1 10*3/uL (1.4-4.0); Lymphocytes % 22.1 % (21.2-54.2); Mean Corpuscular HGB Conc 33.1 GM/DL (32-36); Mean Corpuscular Volume 86.9 FL (87-102); Mean Platelet Volume 9.3 FL (9.6-12.0); Monocytes % 6.3 % (1.7-12.7); Neutrophils % 68.1 % (38.7-73.9); Platelet Count 156 T/CUMM (130-400); Red Cell Distribution Width 13.2 % (9.3-17.3); White Blood Count 4.8 T/CUMM (4-12)
[2021-04-24 05:48] LABS: Alanine Aminotransferase < 6 U/L (16-61); Albumin 2.3 G/DL (3.4-5.0); Alkaline Phosphatase 60 U/L (45-117); Aspartate Amino Transferase 10 U/L (0-37); Blood Urea Nitrogen 10 MG/DL (7-18); Calcium 8.2 MG/DL (8.5-10.1); Carbon Dioxide 23 MMOL/L (21-32); Estimated Glom Filtration Rate 97 ML/MIN; Glucose 164 MG/DL (74-106); Potassium 3.3 MMOL/L (3.5-5.1); Sodium 136 MMOL/L (136-145); Total Protein 6.2 G/DL (6.4-8.2)
[2021-04-24] MEDS: PANTOPRAZOLE 40 MG TABLET PO SCH (06:43)
[2021-04-24] MEDS: VANCOMYCIN INJ 1,250 MG in SODIUM CHLORIDE 0.9% 250 ML IV SCH ×2 (08:17→21:18)
[2021-04-24] MEDS: FUROSEMIDE 20 MG TABLET PO SCH (08:20)
[2021-04-24] MEDS: CARBIDOPA/LEVODOPA 25-100 MG TABLET PO SCH ×4 (08:20→21:18)
[2021-04-24] MEDS: DOCUSATE SODIUM 100 MG CAPSULE PO SCH ×2 (08:20→21:18)
[2021-04-24] MEDS: PREGABALIN 100 MG CAPSULE PO SCH ×2 (08:20→21:18)
[2021-04-24] MEDS: carvediloL 3.125 MG TABLET PO SCH ×2 (08:20→16:47)
[2021-04-24] MEDS: MEMANTINE 10 MG TABLET PO SCH ×2 (08:20→16:48)
[2021-04-24] MEDS: FERROUS SULFATE 325 MG TABLET PO SCH ×2 (08:20→21:19)
[2021-04-24] MEDS: MEGESTROL 400 MG/10 ML UDCUP PO SCH (08:20)
[2021-04-24] MEDS: RIVASTIGMINE 3 MG CAPSULE PO SCH ×2 (08:20→21:19)
[2021-04-24] MEDS: PIMAVANSERIN 34 MG PO SCH ×2 (08:21→13:12)
[2021-04-24] MEDS ORDERED: BISACODYL 10 MG SUPP RECTAL ONE (12:25)
[2021-04-24] MEDS: POTASSIUM CHLORIDE 20 MEQ TABLET PO PRN ×2 (13:13→16:47)
[2021-04-24] MEDS: hydrALAZINE 20 MG/1 ML VIAL IV PRN (16:46)
[2021-04-24] MEDS: MELATONIN 3 MG TABLET PO SCH (21:19)
[2021-04-24] MEDS: ROSUVASTATIN 10 MG TABLET PO SCH (21:19)
[2021-04-24] MEDS: ENOXAPARIN 30 MG/0.3 ML SYRINGE SUBCUT SCH (21:19)
[2021-04-25] MEDS: PIPERACILLIN/TAZOBACTAM 3,375 MG in SODIUM CHLORIDE 0.9% 100 ML IV SCH ×3 (01:26→16:30)
[2021-04-25] MEDS: SODIUM CHLORIDE 0.45% 1,000 ML IV SCH ×3 (01:43→16:22)
[2021-04-25] MEDS: PANTOPRAZOLE 40 MG TABLET PO SCH (06:20)
[2021-04-25] MEDS: RIVASTIGMINE 3 MG CAPSULE PO SCH ×2 (08:13→21:26)
[2021-04-25] MEDS: MEGESTROL 400 MG/10 ML UDCUP PO SCH (08:13)
[2021-04-25] MEDS: PREGABALIN 100 MG CAPSULE PO SCH ×2 (08:14→21:26)
[2021-04-25] MEDS: FERROUS SULFATE 325 MG TABLET PO SCH ×2 (08:14→21:26)
[2021-04-25] MEDS: MEMANTINE 10 MG TABLET PO SCH ×2 (08:14→16:25)
[2021-04-25] MEDS: DOCUSATE SODIUM 100 MG CAPSULE PO SCH ×2 (08:14→21:26)
[2021-04-25] MEDS: carvediloL 3.125 MG TABLET PO SCH ×2 (08:14→16:26)
[2021-04-25] MEDS: FUROSEMIDE 20 MG TABLET PO SCH (08:14)
[2021-04-25] MEDS: CARBIDOPA/LEVODOPA 25-100 MG TABLET PO SCH ×4 (08:14→21:26)
[2021-04-25] MEDS: PIMAVANSERIN 34 MG PO SCH (13:45)
[2021-04-25] MEDS: hydrALAZINE 20 MG/1 ML VIAL IV PRN (16:30)
[2021-04-25] MEDS: ROSUVASTATIN 10 MG TABLET PO SCH (21:26)
[2021-04-25] MEDS: MELATONIN 3 MG TABLET PO SCH (21:27)
[2021-04-25] MEDS: ENOXAPARIN 30 MG/0.3 ML SYRINGE SUBCUT SCH (21:32)
[2021-04-26] MEDS: PIPERACILLIN/TAZOBACTAM 3,375 MG in SODIUM CHLORIDE 0.9% 100 ML IV SCH ×3 (00:43→17:47)
[2021-04-26] MEDS: PANTOPRAZOLE 40 MG TABLET PO SCH (06:10)
[2021-04-26] MEDS: hydrALAZINE 20 MG/1 ML VIAL IV PRN ×2 (08:01→16:18)
[2021-04-26] MEDS: DOCUSATE SODIUM 100 MG CAPSULE PO SCH ×2 (08:04→22:10)
[2021-04-26] MEDS: carvediloL 3.125 MG TABLET PO SCH ×2 (08:04→17:45)
[2021-04-26] MEDS: CARBIDOPA/LEVODOPA 25-100 MG TABLET PO SCH ×4 (08:04→22:10)
[2021-04-26] MEDS: PREGABALIN 100 MG CAPSULE PO SCH ×2 (08:04→22:11)
[2021-04-26] MEDS: FERROUS SULFATE 325 MG TABLET PO SCH ×2 (08:04→22:11)
[2021-04-26] MEDS: RIVASTIGMINE 3 MG CAPSULE PO SCH ×2 (08:04→22:10)
[2021-04-26] MEDS: FUROSEMIDE 20 MG TABLET PO SCH (08:04)
[2021-04-26] MEDS: MEMANTINE 10 MG TABLET PO SCH ×2 (08:04→17:45)
[2021-04-26] MEDS: PIMAVANSERIN 34 MG PO SCH (08:05)
[2021-04-26] MEDS: MEGESTROL 400 MG/10 ML UDCUP PO SCH (08:05)
[2021-04-26] MEDS: SODIUM CHLORIDE 0.45% 1,000 ML IV SCH (22:08)
[2021-04-26] MEDS: MELATONIN 3 MG TABLET PO SCH (22:10)
[2021-04-26] MEDS: ROSUVASTATIN 10 MG TABLET PO SCH (22:10)
[2021-04-26] MEDS: ENOXAPARIN 40 MG/0.4 ML SYRINGE SUBCUT SCH (22:11)
[2021-04-27] MEDS: PIPERACILLIN/TAZOBACTAM 3,375 MG in SODIUM CHLORIDE 0.9% 100 ML IV SCH ×2 (01:16→09:18)
[2021-04-27] MEDS: PANTOPRAZOLE 40 MG TABLET PO SCH (06:02)
[2021-04-27 07:13] LABS: Basophils % 0.2 % (0.0-0.8); Eosinophils # 0.1 10*3/uL (0.0-0.87); Eosinophils % 2.4 % (0.00-10.9); Hematocrit 33.3 VOL% (42.0-52.0); Immature Granulocytes % 1.3 %; Immature Granulocytes Absolute 0.06 #; Lymphocytes # 1.2 10*3/uL (1.4-4.0); Lymphocytes % 27.3 % (21.2-54.2); Mean Corpuscular Volume 88.6 FL (87-102); Mean Platelet Volume 8.9 FL (9.6-12.0); Monocytes % 5.8 % (1.7-12.7); Platelet Count 206 T/CUMM (130-400); Red Blood Count 3.76 MC/CUMM (3.8-5.5); Red Cell Distribution Width 13.5 % (9.3-17.3); White Blood Count 4.5 T/CUMM (4-12)
[2021-04-27] MEDS: SODIUM CHLORIDE 0.45% 1,000 ML IV SCH ×3 (07:30→21:46)
[2021-04-27 07:39] LABS: Calcium 9.2 MG/DL (8.5-10.1); Osmolality,Calculated 269.2 MOS/KG (273-304); Potassium 3.9 MMOL/L (3.5-5.1)
[2021-04-27] MEDS: PIMAVANSERIN 34 MG PO SCH (09:19)
[2021-04-27] MEDS: carvediloL 3.125 MG TABLET PO SCH ×2 (09:20→16:24)
[2021-04-27] MEDS: PREGABALIN 100 MG CAPSULE PO SCH ×2 (09:20→21:26)
[2021-04-27] MEDS: FERROUS SULFATE 325 MG TABLET PO SCH ×2 (09:20→21:27)
[2021-04-27] MEDS: MEGESTROL 400 MG/10 ML UDCUP PO SCH (09:20)
[2021-04-27] MEDS: DOCUSATE SODIUM 100 MG CAPSULE PO SCH ×2 (09:20→21:27)
[2021-04-27] MEDS: FUROSEMIDE 20 MG TABLET PO SCH (09:20)
[2021-04-27] MEDS: RIVASTIGMINE 3 MG CAPSULE PO SCH ×2 (09:20→21:26)
[2021-04-27] MEDS: CARBIDOPA/LEVODOPA 25-100 MG TABLET PO SCH ×4 (09:20→21:26)
[2021-04-27] MEDS: MEMANTINE 10 MG TABLET PO SCH ×2 (09:20→16:24)
[2021-04-27] MEDS: MENTHOL/ZINC OXIDE OINT 71 GM JAR TOP SCH ×2 (16:24→21:27)
[2021-04-27] MEDS: NYSTATIN POWDER 15 GM BOTTLE TOP SCH ×2 (16:24→21:28)
[2021-04-27] MEDS: ROSUVASTATIN 10 MG TABLET PO SCH (21:26)
[2021-04-27] MEDS: MELATONIN 3 MG TABLET PO SCH (21:26)
[2021-04-27] MEDS: SULFAMETHOX/TRIMETHOPRIM 800-160 MG TABLET PO SCH (21:27)
[2021-04-27] MEDS: ENOXAPARIN 40 MG/0.4 ML SYRINGE SUBCUT SCH (21:28)
[2021-04-28] MEDS: PANTOPRAZOLE 40 MG TABLET PO SCH (05:40)
[2021-04-28] MEDS: DOCUSATE SODIUM 100 MG CAPSULE PO SCH (09:46)
[2021-04-28] MEDS: CARBIDOPA/LEVODOPA 25-100 MG TABLET PO SCH ×2 (09:46→14:12)
[2021-04-28] MEDS: MEMANTINE 10 MG TABLET PO SCH (09:46)
[2021-04-28] MEDS: FUROSEMIDE 20 MG TABLET PO SCH (09:46)
[2021-04-28] MEDS: RIVASTIGMINE 3 MG CAPSULE PO SCH (09:46)
[2021-04-28] MEDS: FERROUS SULFATE 325 MG TABLET PO SCH (09:46)
[2021-04-28] MEDS: MEGESTROL 400 MG/10 ML UDCUP PO SCH (09:46)
[2021-04-28] MEDS: carvediloL 3.125 MG TABLET PO SCH (09:46)
[2021-04-28] MEDS: SULFAMETHOX/TRIMETHOPRIM 800-160 MG TABLET PO SCH (09:46)
[2021-04-28] MEDS: PREGABALIN 100 MG CAPSULE PO SCH (09:47)
[2021-04-28] MEDS: PIMAVANSERIN 34 MG PO SCH (09:47)
[2021-04-28] MEDS: MENTHOL/ZINC OXIDE OINT 71 GM JAR TOP SCH (11:12)
[2021-04-28] MEDS: NYSTATIN POWDER 15 GM BOTTLE TOP SCH (11:12)
[2021-04-28 12:09] VITALS: BP 158/72
[2021-04-28] MEDS: SODIUM CHLORIDE 0.45% 1,000 ML IV SCH (13:41)
== END 2021-04-28 15:00 | DRG 671 ==
LOC: N.5E 13:08
PROVIDERS: ADMIT Family Medicine; ATTEND Family Medicine

== ENCOUNTER 2021-05-18 06:13 | Inpatient (IN) ==
[2021-05-17 16:50] LABS: Basophils % 0.4 % (0.0-0.8); Eosinophils # 0.2 10*3/uL (0.0-0.87); Eosinophils % 2.2 % (0.00-10.9); Hematocrit 36.3 VOL% (42.0-52.0); Hemoglobin 11.7 GM/DL (14.0-18.0); Immature Granulocytes % 1.7 %; Immature Granulocytes Absolute 0.16 #; Lymphocytes % 20.4 % (21.2-54.2); Mean Corpuscular HGB Conc 32.2 GM/DL (32-36); Mean Corpuscular Volume 88.3 FL (87-102); Mean Platelet Volume 9.1 FL (9.6-12.0); Monocytes % 5.8 % (1.7-12.7); Neutrophils % 69.5 % (38.7-73.9); Platelet Count 246 T/CUMM (130-400); Red Blood Count 4.11 MC/CUMM (3.8-5.5); Red Cell Distribution Width 13.4 % (9.3-17.3); White Blood Count 9.6 T/CUMM (4-12)
[2021-05-17 17:15] LABS: Albumin 3.8 G/DL (3.4-5.0); Bilirubin,Total 0.4 MG/DL (0.20-1.00); Calcium 9.4 MG/DL (8.5-10.1); Osmolality,Calculated 269.8 MOS/KG (273-304); Potassium 4.8 MMOL/L (3.5-5.1); Total Protein 7.7 G/DL (6.4-8.2)
[2021-05-18] MEDS ORDERED: cefTRIAXone 1,000 MG in SODIUM CHLORIDE 0.9% 100 ML IV ONE (06:30)
[2021-05-18] MEDS ORDERED: NEOMYCIN/POLYMYXIN IRRIG SOLN 1 ML AMP BLADDERIRR ONE (06:44)
[2021-05-18] MEDS ORDERED: LACTATED RINGERS 1,000 ML IV SCH (07:00)
[2021-05-18] MEDS ORDERED: fentaNYL 100 MCG/2 ML VIAL ONE (07:19)
[2021-05-18] MEDS ORDERED: ePHEDrine 50 MG/ML VIAL ONE (07:20)
[2021-05-18] MEDS ORDERED: GLYCOPYRROLATE 0.4 MG/2 ML VIAL ONE (07:41)
[2021-05-18] MEDS ORDERED: NEOSTIGMINE 10 MG/10 ML VIAL ONE (07:41)
[2021-05-18] MEDS ORDERED: SEVOFLURANE 1 UNIT/15 MINUTE INH ONE (07:43)
[2021-05-18] MEDS ORDERED: propofoL 200 MG/20 ML VIAL IV ONE (07:43)
[2021-05-18] MEDS ORDERED: ACETAMINOPHEN INJ 1,000 MG/100 ML VIAL IV ONE (07:43)
[2021-05-18] MEDS ORDERED: LIDOCAINE 2% 5 ML VIAL ONE (07:43)
[2021-05-18] MEDS ORDERED: ROCURONIUM 50 MG/5 ML VIAL IV ONE (07:43)
[2021-05-18] MEDS ORDERED: DEXAMETHASONE 4 MG/1 ML VIAL ONE (07:43)
[2021-05-18] MEDS ORDERED: ETOMIDATE 40 MG/20 ML VIAL IV ONE (07:43)
[2021-05-18] MEDS ORDERED: ONDANSETRON 4 MG/2 ML VIAL ONE (07:43)
[2021-05-18] MEDS ORDERED: LIDOCAINE 2% TOP JELLY 20 ML VIAL INTRAURETH ONE (09:02)
[2021-05-18] MEDS ORDERED: LACTULOSE 20 GM/30 ML UDCUP PO PRN (09:26)
[2021-05-18] MEDS ORDERED: diphenhydrAMINE CAP 25 MG CAPSULE PO PRN (09:26)
[2021-05-18] MEDS ORDERED: ONDANSETRON 4 MG/2 ML VIAL IV PRN (09:26)
[2021-05-18] MEDS ORDERED: PROMETHAZINE 25 MG/1 ML VIAL IM PRN (09:26)
[2021-05-18] MEDS ORDERED: MENTHOL/ZINC OXIDE OINT 71 GM JAR TOP PRN (09:31)
[2021-05-18] MEDS ORDERED: NYSTATIN POWDER 15 GM BOTTLE TOP PRN (09:31)
[2021-05-18] MEDS: ACETAMINOPHEN 325 MG TABLET PO SCH ×3 (11:24→21:57)
[2021-05-18] MEDS: cefTRIAXone 1,000 MG in SODIUM CHLORIDE 0.9% 100 ML IV SCH (12:07)
[2021-05-18] MEDS: CARBIDOPA/LEVODOPA 25-100 MG TABLET PO SCH ×3 (12:07→21:57)
[2021-05-18] MEDS: FERROUS SULFATE 325 MG TABLET PO SCH (17:32)
[2021-05-18] MEDS: PANTOPRAZOLE 40 MG TABLET PO SCH (17:32)
[2021-05-18] MEDS: MEMANTINE 10 MG TABLET PO SCH (17:32)
[2021-05-18] MEDS: carvediloL 3.125 MG TABLET PO SCH (17:32)
[2021-05-18] MEDS: OXYBUTYNIN 5 MG TABLET PO SCH ×2 (17:32→21:57)
[2021-05-18] MEDS: RIVASTIGMINE 3 MG CAPSULE PO SCH (21:56)
[2021-05-18] MEDS: PREGABALIN 100 MG CAPSULE PO SCH (21:56)
[2021-05-18] MEDS: ROSUVASTATIN 10 MG TABLET PO SCH (21:56)
[2021-05-18] MEDS: MELATONIN 3 MG TABLET PO SCH (21:56)
[2021-05-18] MEDS: DOCUSATE SODIUM 100 MG CAPSULE PO SCH (21:57)
[2021-05-18] MEDS ORDERED: PHENOL 1.4% THROAT SPRAY 177 ML BOTTLE PO PRN (23:02)
[2021-05-19] MEDS: ACETAMINOPHEN 325 MG TABLET PO SCH ×4 (03:46→21:50)
[2021-05-19 05:13] LABS: Basophils % 0.2 % (0.0-0.8); Eosinophils % 0.1 % (0.00-10.9); Hematocrit 26.8 VOL% (42.0-52.0); Hemoglobin 8.8 GM/DL (14.0-18.0); Immature Granulocytes % 1.1 %; Immature Granulocytes Absolute 0.09 #; Lymphocytes # 1.5 10*3/uL (1.4-4.0); Lymphocytes % 18.8 % (21.2-54.2); Mean Corpuscular HGB Conc 32.8 GM/DL (32-36); Mean Corpuscular Volume 88.7 FL (87-102); Mean Platelet Volume 9.2 FL (9.6-12.0); Monocytes % 6.1 % (1.7-12.7); Neutrophils % 73.7 % (38.7-73.9); Platelet Count 183 T/CUMM (130-400); Red Blood Count 3.02 MC/CUMM (3.8-5.5); Red Cell Distribution Width 13.2 % (9.3-17.3); White Blood Count 8.1 T/CUMM (4-12)
[2021-05-19 05:33] LABS: Calcium 9.1 MG/DL (8.5-10.1); Osmolality,Calculated 272.2 MOS/KG (273-304); Potassium 4.5 MMOL/L (3.5-5.1)
[2021-05-19] MEDS: PANTOPRAZOLE 40 MG TABLET PO SCH ×2 (08:30→16:07)
[2021-05-19] MEDS: amLODIPine 5 MG TABLET PO SCH (08:30)
[2021-05-19] MEDS: carvediloL 3.125 MG TABLET PO SCH ×2 (08:30→17:56)
[2021-05-19] MEDS: DULoxetine 30 MG CAPSULE PO SCH (08:32)
[2021-05-19] MEDS: MEMANTINE 10 MG TABLET PO SCH ×2 (08:32→17:56)
[2021-05-19] MEDS: FERROUS SULFATE 325 MG TABLET PO SCH ×2 (08:33→17:56)
[2021-05-19] MEDS: PREGABALIN 100 MG CAPSULE PO SCH ×2 (08:33→21:49)
[2021-05-19] MEDS: DOCUSATE SODIUM 100 MG CAPSULE PO SCH ×2 (08:33→21:49)
[2021-05-19] MEDS: FUROSEMIDE 20 MG TABLET PO SCH (08:33)
[2021-05-19] MEDS: RIVASTIGMINE 3 MG CAPSULE PO SCH ×2 (08:34→21:49)
[2021-05-19] MEDS: CARBIDOPA/LEVODOPA 25-100 MG TABLET PO SCH ×4 (08:34→21:50)
[2021-05-19] MEDS: OXYBUTYNIN 5 MG TABLET PO SCH ×3 (08:34→21:50)
[2021-05-19] MEDS: PIMAVANSERIN 34 MG PO SCH (08:35)
[2021-05-19] MEDS: MEGESTROL 400 MG/10 ML UDCUP PO SCH (08:35)
[2021-05-19] MEDS: cefTRIAXone 1,000 MG in SODIUM CHLORIDE 0.9% 100 ML IV SCH (08:47)
[2021-05-19 15:45] LABS: Hematocrit 27.5 VOL% (42.0-52.0); Hemoglobin 8.9 GM/DL (14.0-18.0)
[2021-05-19] MEDS: MELATONIN 3 MG TABLET PO SCH (21:49)
[2021-05-19] MEDS: ROSUVASTATIN 10 MG TABLET PO SCH (21:50)
[2021-05-20] MEDS: ACETAMINOPHEN 325 MG TABLET PO SCH ×4 (04:27→21:18)
[2021-05-20 05:20] LABS: Basophils % 0.2 % (0.0-0.8); Eosinophils # 0.1 10*3/uL (0.0-0.87); Eosinophils % 1.2 % (0.00-10.9); Hematocrit 28.4 VOL% (42.0-52.0); Hemoglobin 9.2 GM/DL (14.0-18.0); Immature Granulocytes % 1.9 %; Immature Granulocytes Absolute 0.15 #; Lymphocytes # 2.2 10*3/uL (1.4-4.0); Lymphocytes % 27.1 % (21.2-54.2); Mean Corpuscular HGB Conc 32.4 GM/DL (32-36); Mean Corpuscular Volume 89.6 FL (87-102); Mean Platelet Volume 9.2 FL (9.6-12.0); Monocytes % 5.3 % (1.7-12.7); Neutrophils % 64.3 % (38.7-73.9); Platelet Count 192 T/CUMM (130-400); Red Blood Count 3.17 MC/CUMM (3.8-5.5); Red Cell Distribution Width 13.5 % (9.3-17.3); White Blood Count 8.1 T/CUMM (4-12)
[2021-05-20 05:37] LABS: Calcium 9.1 MG/DL (8.5-10.1); Osmolality,Calculated 268.4 MOS/KG (273-304)
[2021-05-20] MEDS: FUROSEMIDE 20 MG TABLET PO SCH (09:14)
[2021-05-20] MEDS: DULoxetine 30 MG CAPSULE PO SCH (09:14)
[2021-05-20] MEDS: PREGABALIN 100 MG CAPSULE PO SCH ×2 (09:14→21:19)
[2021-05-20] MEDS: CARBIDOPA/LEVODOPA 25-100 MG TABLET PO SCH ×4 (09:14→21:18)
[2021-05-20] MEDS: amLODIPine 5 MG TABLET PO SCH (09:14)
[2021-05-20] MEDS: carvediloL 3.125 MG TABLET PO SCH ×2 (09:14→17:14)
[2021-05-20] MEDS: DOCUSATE SODIUM 100 MG CAPSULE PO SCH ×2 (09:14→21:19)
[2021-05-20] MEDS: RIVASTIGMINE 3 MG CAPSULE PO SCH ×2 (09:14→21:18)
[2021-05-20] MEDS: FERROUS SULFATE 325 MG TABLET PO SCH ×2 (09:14→17:14)
[2021-05-20] MEDS: PANTOPRAZOLE 40 MG TABLET PO SCH ×2 (09:14→17:14)
[2021-05-20] MEDS: OXYBUTYNIN 5 MG TABLET PO SCH ×3 (09:15→21:18)
[2021-05-20] MEDS: cefTRIAXone 1,000 MG in SODIUM CHLORIDE 0.9% 100 ML IV SCH (09:15)
[2021-05-20] MEDS: MEGESTROL 400 MG/10 ML UDCUP PO SCH (09:15)
[2021-05-20] MEDS: PIMAVANSERIN 34 MG PO SCH (09:15)
[2021-05-20] MEDS: MEMANTINE 10 MG TABLET PO SCH ×2 (09:15→17:14)
[2021-05-20] MEDS: MELATONIN 3 MG TABLET PO SCH (21:19)
[2021-05-20] MEDS: ROSUVASTATIN 10 MG TABLET PO SCH (21:19)
[2021-05-21] MEDS: ACETAMINOPHEN 325 MG TABLET PO SCH ×4 (02:47→21:00)
[2021-05-21 05:11] LABS: Basophils % 0.4 % (0.0-0.8); Eosinophils # 0.2 10*3/uL (0.0-0.87); Eosinophils % 2.2 % (0.00-10.9); Hematocrit 29.2 VOL% (42.0-52.0); Hemoglobin 9.4 GM/DL (14.0-18.0); Immature Granulocytes Absolute 0.16 #; Lymphocytes # 2.1 10*3/uL (1.4-4.0); Lymphocytes % 26.2 % (21.2-54.2); Mean Corpuscular HGB Conc 32.2 GM/DL (32-36); Mean Corpuscular Volume 89.8 FL (87-102); Monocytes % 5.9 % (1.7-12.7); Neutrophils % 63.3 % (38.7-73.9); Platelet Count 197 T/CUMM (130-400); Red Blood Count 3.25 MC/CUMM (3.8-5.5); Red Cell Distribution Width 13.4 % (9.3-17.3); White Blood Count 7.8 T/CUMM (4-12)
[2021-05-21 05:22] LABS: Calcium 8.8 MG/DL (8.5-10.1); Osmolality,Calculated 272.1 MOS/KG (273-304)
[2021-05-21] MEDS: DULoxetine 30 MG CAPSULE PO SCH (08:29)
[2021-05-21] MEDS: FUROSEMIDE 20 MG TABLET PO SCH (08:30)
[2021-05-21] MEDS: carvediloL 3.125 MG TABLET PO SCH ×2 (08:30→17:17)
[2021-05-21] MEDS: FERROUS SULFATE 325 MG TABLET PO SCH ×2 (08:30→17:17)
[2021-05-21] MEDS: RIVASTIGMINE 3 MG CAPSULE PO SCH ×2 (08:31→20:59)
[2021-05-21] MEDS: CARBIDOPA/LEVODOPA 25-100 MG TABLET PO SCH ×4 (08:31→21:00)
[2021-05-21] MEDS: PANTOPRAZOLE 40 MG TABLET PO SCH ×2 (08:32→17:16)
[2021-05-21] MEDS: amLODIPine 5 MG TABLET PO SCH (08:32)
[2021-05-21] MEDS: OXYBUTYNIN 5 MG TABLET PO SCH ×3 (08:33→21:00)
[2021-05-21] MEDS: MEGESTROL 400 MG/10 ML UDCUP PO SCH (08:33)
[2021-05-21] MEDS: MEMANTINE 10 MG TABLET PO SCH ×2 (08:33→17:16)
[2021-05-21] MEDS: DOCUSATE SODIUM 100 MG CAPSULE PO SCH ×2 (08:34→20:59)
[2021-05-21] MEDS: PREGABALIN 100 MG CAPSULE PO SCH ×2 (08:35→21:00)
[2021-05-21] MEDS: PIMAVANSERIN 34 MG PO SCH (10:51)
[2021-05-21] MEDS: cefTRIAXone 1,000 MG in SODIUM CHLORIDE 0.9% 100 ML IV SCH (10:55)
[2021-05-21] MEDS: ROSUVASTATIN 10 MG TABLET PO SCH (20:59)
[2021-05-21] MEDS: MELATONIN 3 MG TABLET PO SCH (20:59)
[2021-05-22] MEDS: ACETAMINOPHEN 325 MG TABLET PO SCH ×4 (03:19→20:52)
[2021-05-22 05:48] LABS: Basophils % 0.2 % (0.0-0.8); Eosinophils # 0.2 10*3/uL (0.0-0.87); Eosinophils % 2.3 % (0.00-10.9); Hematocrit 30.2 VOL% (42.0-52.0); Hemoglobin 9.6 GM/DL (14.0-18.0); Immature Granulocytes Absolute 0.19 #; Lymphocytes # 2.1 10*3/uL (1.4-4.0); Lymphocytes % 22.3 % (21.2-54.2); Mean Corpuscular HGB Conc 31.8 GM/DL (32-36); Mean Corpuscular Volume 90.1 FL (87-102); Mean Platelet Volume 9.2 FL (9.6-12.0); Neutrophils % 67.2 % (38.7-73.9); Platelet Count 198 T/CUMM (130-400); Red Blood Count 3.35 MC/CUMM (3.8-5.5); Red Cell Distribution Width 13.6 % (9.3-17.3); White Blood Count 9.6 T/CUMM (4-12)
[2021-05-22 06:04] LABS: Calcium 9.3 MG/DL (8.5-10.1); Potassium 3.9 MMOL/L (3.5-5.1)
[2021-05-22] MEDS: FUROSEMIDE 20 MG TABLET PO SCH (08:58)
[2021-05-22] MEDS: CARBIDOPA/LEVODOPA 25-100 MG TABLET PO SCH ×4 (08:58→20:51)
[2021-05-22] MEDS: MEMANTINE 10 MG TABLET PO SCH ×2 (08:58→16:40)
[2021-05-22] MEDS: FERROUS SULFATE 325 MG TABLET PO SCH ×2 (08:58→16:40)
[2021-05-22] MEDS: DULoxetine 30 MG CAPSULE PO SCH (08:58)
[2021-05-22] MEDS: amLODIPine 5 MG TABLET PO SCH (08:58)
[2021-05-22] MEDS: DOCUSATE SODIUM 100 MG CAPSULE PO SCH ×2 (08:58→20:52)
[2021-05-22] MEDS: OXYBUTYNIN 5 MG TABLET PO SCH ×3 (08:58→20:52)
[2021-05-22] MEDS: RIVASTIGMINE 3 MG CAPSULE PO SCH ×2 (08:59→20:51)
[2021-05-22] MEDS: PREGABALIN 100 MG CAPSULE PO SCH ×2 (08:59→20:52)
[2021-05-22] MEDS: PANTOPRAZOLE 40 MG TABLET PO SCH ×2 (08:59→16:40)
[2021-05-22] MEDS: carvediloL 3.125 MG TABLET PO SCH ×2 (08:59→16:40)
[2021-05-22] MEDS: MEGESTROL 400 MG/10 ML UDCUP PO SCH (08:59)
[2021-05-22] MEDS: PIMAVANSERIN 34 MG PO SCH (09:10)
[2021-05-22] MEDS: cefTRIAXone 1,000 MG in SODIUM CHLORIDE 0.9% 100 ML IV SCH (09:10)
[2021-05-22] MEDS: MELATONIN 3 MG TABLET PO SCH (20:51)
[2021-05-22] MEDS: ROSUVASTATIN 10 MG TABLET PO SCH (20:51)
[2021-05-23] MEDS: ACETAMINOPHEN 325 MG TABLET PO SCH ×3 (04:13→15:43)
[2021-05-23 05:13] LABS: Calcium 8.7 MG/DL (8.5-10.1); Osmolality,Calculated 279.7 MOS/KG (273-304); Potassium 3.9 MMOL/L (3.5-5.1)
[2021-05-23] MEDS ORDERED: INFLUENZA VIRUS VACCINE 0.5 ML SYRINGE IM ONE (08:07)
[2021-05-23] MEDS: RIVASTIGMINE 3 MG CAPSULE PO SCH ×2 (08:36→15:43)
[2021-05-23] MEDS: DULoxetine 30 MG CAPSULE PO SCH (08:36)
[2021-05-23] MEDS: PREGABALIN 100 MG CAPSULE PO SCH ×2 (08:36→15:43)
[2021-05-23] MEDS: amLODIPine 5 MG TABLET PO SCH (08:37)
[2021-05-23] MEDS: MEMANTINE 10 MG TABLET PO SCH ×2 (08:37→15:44)
[2021-05-23] MEDS: OXYBUTYNIN 5 MG TABLET PO SCH ×2 (08:37→15:43)
[2021-05-23] MEDS: PANTOPRAZOLE 40 MG TABLET PO SCH ×2 (08:37→15:44)
[2021-05-23] MEDS: CARBIDOPA/LEVODOPA 25-100 MG TABLET PO SCH ×3 (08:37→15:44)
[2021-05-23] MEDS: FUROSEMIDE 20 MG TABLET PO SCH (08:38)
[2021-05-23] MEDS: FERROUS SULFATE 325 MG TABLET PO SCH ×2 (08:38→15:44)
[2021-05-23] MEDS: DOCUSATE SODIUM 100 MG CAPSULE PO SCH ×2 (08:38→15:44)
[2021-05-23] MEDS: MEGESTROL 400 MG/10 ML UDCUP PO SCH (08:38)
[2021-05-23] MEDS: carvediloL 3.125 MG TABLET PO SCH ×2 (08:38→15:44)
[2021-05-23] MEDS: PIMAVANSERIN 34 MG PO SCH (10:24)
[2021-05-23] MEDS: cefTRIAXone 1,000 MG in SODIUM CHLORIDE 0.9% 100 ML IV SCH (10:32)
[2021-05-23 16:06] VITALS: BP 135/83
== END 2021-05-23 17:51 | disposition home health service (06) | DRG 699 ==
LOC: N.OR 06:13 → N.SDSINP 06:15 → N.3E 10:27
PROVIDERS: ADMIT Surgery; ATTEND Internal Medicine